=== PATIENT | male | born 2000 | race Caucasian/White ===

== ENCOUNTER 2023-06-14 16:30 | Emergency (ER) | payer OTHER, SELFPAY ==
[2023-06-14 16:31] VITALS: BP 158/90; PULSE 83; RESP 18; TEMP 36.4; O2SAT 98; BMI 19.8
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
[2023-06-14] MEDS: Lidocaine 1% (20 ml mdv) 20 ML Vial INFILT (17:34)
== END 2023-06-14 17:35 | disposition home or self-care (01) ==
PROVIDERS: Emergency Provider Emergency Medicine; Visit Provider Emergency Medicine
DX: S01.01XA Laceration without foreign body of scalp, initial encounter (principal); R03.0 Elevated blood-pressure reading, without diagnosis of hypertension; Y92.410 Unspecified street and highway as the place of occurrence of the external cause; V49.88XA Car occupant (driver) (passenger) injured in other specified transport accidents, initial encounter
CPT/HCPCS: 12001; 99284